=== PATIENT | male | born 1955 | race Caucasian/White ===

== ENCOUNTER 2023-09-29 06:02 | Emergency (ER) | payer MEDICARE, OTHER, SELFPAY ==
[2023-09-29] VITALS (9 sets, daily range): BP systolic 158–189; BP diastolic 76–91; PULSE 84–112; RESP 16–25; TEMP 36.4–37; O2SAT 95–100; BMI 21.2
--- NOTE | ~2023-09-29 | CT_ITS ---
EXAMINATION: CT CHEST WITHOUT CONTRAST CLINICAL INFORMATION: Near syncope. COMPARISON: None available. TECHNIQUE: Multidetector volumetric CT imaging of the chest was done. Axial MIP volume rendering provided. Sagittal and coronal reformatted images were obtained. This CT examination was performed using dose optimization techniques as appropriate, variously including the following: *Automated exposure control *Adjustment of mA and/or kV according to patient size (this includes techniques or standardized protocols for targeted exams where dose is matched to indication/reason for exam; i.e. extremities or head) *Use of iterative reconstruction technique DLP: 214 mGy-cm FINDINGS: LUNGS: Minimal biapical and bibasilar fibrotic streaks and/or atelectasis. The lungs otherwise appear clear. No evidence of acute inflammation or nodules. MEDIASTINUM: The mediastinum is normal. CORONARY ARTERY CALCIFICATION: Minimal. PLEURA: There is no pleural effusion. No pleural mass or thickening. AXILLA: No lymphadenopathy by size criteria. UPPER ABDOMEN: Subcentimeter, round, homogeneous, hypodense hepatic lesions, too small to characterize. In the absence of known or suspected malignancy elsewhere, the findings probably represent benign entities, such as simple cysts and/or hemangiomata. 1.2 cm benign left simple renal cyst for which no further dedicated follow up imaging is indicated. OSSEOUS STRUCTURES: Decreased bone mineral density. No acute finding. Degenerative changes of the shoulders. Bony bridging between the anterolateral aspects of the left sixth and seventh ribs. CT/CT chest wo IV con IMPRESSION: No acute finding.
--- NOTE | ~2023-09-29 | XR_ITS ---
EXAMINATION: XR CHEST CLINICAL INFORMATION: Feeling faint, near syncope. Patient states syncope and palpitations. COMPARISON: None available. TECHNIQUE: Frontal view of the chest was obtained. FINDINGS: The heart size is normal. Lungs are well inflated. Mild blunting of the left costophrenic angle may represent pleural effusion versus pleural thickening. Degenerative changes in the bilateral shoulders and thoracic spine. Mildly prominent interstitial opacities, greater in the left upper lung, of uncertain chronicity. XR/XR chest 1V IMPRESSION: Mild blunting of the left costophrenic angle, may represent pleural effusion versus pleural thickening. Mildly prominent interstitial opacities, greater in the left upper lung, of uncertain chronicity. This study was presented today September 29, 2023 for interpretation. Stat results provided at this time as requested by referring provider.
--- NOTE | ~2023-09-29 | CT_ITS ---
EXAMINATION: CT HEAD WITHOUT CONTRAST CLINICAL INFORMATION: Pain, question bleed COMPARISON: None available. TECHNIQUE: Contiguous axial imaging was performed from the skull base to vertex without intravenous administration of contrast. This CT examination was performed using dose optimization techniques as appropriate, variously including the following: *Automated exposure control *Adjustment of mA and/or kV according to patient size (this includes techniques or standardized protocols for targeted exams where dose is matched to indication/reason for exam; i.e. extremities or head) *Use of iterative reconstruction technique DLP: 825 mGy-cm FINDINGS: There is no midline shift. There is no mass effect. There is no hemorrhage. The basal cisterns appear patent. The posterior fossa is grossly within normal limits. No extra-axial collection. There are some scattered areas of decreased attenuation which may well be consistent with white matter skinny changes. CT/CT head/brain wo IV con IMPRESSION: Negative acute noncontrast CT the brain. Some scattered areas of probable white matter ischemic changes. If further evaluation is warranted consider MR.
[2023-09-29 06:16] LABS: Glucose, Whole Blood 95 mg/dL (60-115)
[2023-09-29 06:27] LABS: Baso%MD 0.5 %; Eos%MD 2.1 %; Hematocrit 42.9 % (42.0-52.0); Hemoglobin 15.1 g/dl (14.0-18.0); IG%MD 0.1 %; Lymph%MD 44.4 %; Mean Corpuscular HGB Conc 35.2 g/dl (31.0-36.0); Mean Corpuscular Hemoglobin 32.8 pg (27.0-33.0); Mean Corpuscular Volume 93.3 fL (80.0-98.0); Mono%MD 8.3 %; Neut%MD 44.6 %; Platelet Count 227 X10*3/uL (160-400)
[2023-09-29 06:42] LABS: Alanine Aminotransferase 30 U/L (0-40); Albumin Level 4.6 g/dL (3.5-5.0); Alkaline Phosphatase 92 U/L (39-117); Anion Gap 15 (12-20); Aspartate Amino Transferase 28 U/L (5-37); Bilirubin Total 0.7 mg/dL (0.0-1.0); Blood Urea Nitrogen 27 mg/dL (9-16); Calcium 9.8 mg/dL (8.4-10.2); Carbon Dioxide 24 mmol/L (22-29); Chloride 105 mmol/L (96-108); Creatinine Clr Calc Pharmacy 42.1; Estimated Glomerular Filt Rate 47; Glucose Random 109 mg/dL (60-115); Potassium 3.5 mmol/L (3.3-5.1); Sodium 140 mmol/L (135-145); Total Protein 8.4 g/dL (6.5-8.0)
[2023-09-29 06:44] LABS: INTERNATIONAL NORM RATIO 0.9 (0.9-1.1); Prothrombin Time 10.9 SEC (11.1-13.3)
[2023-09-29 06:48] LABS: Troponin-I High Sensitivity 6.3 ng/L (<3.5-35.0)
--- NOTE | 2023-09-29 06:53 | ED_ITS ---
HPI - General Adult General Chief complaint: General Medical Stated complaint: feels faint, headache, left side numbness Time Seen by Provider: 09/29/23 06:44 Source: patient Mode of arrival: ambulatory Limitations: no limitations History of Present Illness HPI narrative: This is a 68-year-old male who denies past medical history presenting to the emergency department status post having an episode of feeling faint (described as lightheaded), shaky, weak and had palpitations with an associated frontal headache, he reports this started at 05:30 this morning he reports he was up all night and this started suddenly. This has never happened to him before. Patient reports right now he is feeling normal. He denies chest pain, shortness of breath, visual changes, headache, vision changes, dizziness, weakness, recent URI, sick contacts, nausea, vomiting, diarrhea, abdominal pain. NIH stroke scale 0 Related Data Allergies Allergy/AdvReac Type Severity Reaction Status Date / Time No Known Allergies Allergy Verified 09/29/23 06:12 Review of Systems 2 Review of Systems: Yes all other systems are reviewed and are negative PMFSH Past Medical History Attestation statement: The following information was validated with the patient. Source: old records reviewed and nursing notes reviewed Social History Social History Smoked in Last 30 Days: No Use of substances other than those prescribed or required for medical reasons: No Advance Directives: No Advance Directives Information Provided: No Physical Exam ED Vital Signs: Vital Signs - 24 hr 09/29/23 06:09 09/29/23 06:19 09/29/23 07:59 Temperature 98.0 F 98.0 F Pulse Rate 109 H 111 H 99 Respiratory Rate 18 20 Blood Pressure 189/88 H 189/88 H 168/81 H Pulse Oximetry 99 100 Oxygen Delivery Method Room Air Room Air 09/29/23 08:01 09/29/23 08:03 09/29/23 11:02 Temperature 97.6 F Pulse Rate 95 103 H 100 Respiratory Rate 16 Blood Pressure 166/76 H 167/87 H 158/81 H Pulse Oximetry 99 Oxygen Delivery Method Room Air 09/29/23 13:31 09/29/23 13:56 Temperature 98.1 F Pulse Rate 106 H 112 H Respiratory Rate 25 H 16 Blood Pressure 170/91 H 162/87 H Pulse Oximetry 100 95 Oxygen Delivery Method Room Air Room Air BMI result Body Mass Index 21.2 vss Slight hypertension Appearance: Alert.? Oriented X3.? No acute distress.? Head: Normocephalic, atraumatic, no step-offs or deformities Eyes: Pupils equal, round and reactive to light.? Neck: Normal inspection.? Neck supple.? CVS: Normal heart rate and rhythm.? Pulses normal.? Respiratory: No respiratory distress.? Breath sounds normal.? Abdomen: Soft and nontender.? Skin: Skin warm and dry.? Normal skin color.? Normal skin turgor.? Extremities: No lower extremity edema.? No calf ttp. 5/5 strength to bilateral upper and lower extremities Neuro: Oriented X 3.? No motor deficit.? No sensory deficit. CN 2-12 intact . Ambulating with steady gait normal coordination. Normal [id number], [id number]-[id number]. Negative Romberg and pronator drift. NIH stroke scale 0 Course Reevaluation(s) Reevaluation #1: CBC unremarkable. Chemistry with elevated BUN and creatinine likely secondary to poor p.o. intake/dehydration. Trop 6.3, ekg pending. Dimer 260, age adjusted dimer negative VTE unlikley. Orthostatic vitals negative. Head CT negative acute noncontrast CT of the brain. Scattered areas of probable white matter ischemic changes. MRI to be considered however NIH stroke scale 0 patient's symptoms have completely resolved no indication for MRI at this time. Repeat troponin pending. EKG pending. UA pending. Time: 08:16 Reevaluation #2: Repeat EKG some changes in lead 3, UA unremarkable. Plan is for hospital admission after discussing this case with cardiology that recommends admission as well as echocardiogram. Patient currently getting an echo done. Hospitalist went in to speak to patient about admission and he does not want be admitted. He states he feels fine and wants to go home. Hospitalist will not admit him at this time as he does not want to stay in the hospital. Patient to be leaving against medical advice Time: 14:34 Reevaluation #3: Educated patient on diagnosis and treatment plan, answered all question, patient verbalizes understanding. At this time patient will be discharged home, advised to return with new or worsening symptoms. Educated on worrisome signs and symptoms and when to return. Patient to be discharged AMA Time: 14:34 Medical Decision Making Medical Decision Making [facility] Narrative: 0650 68-year-old male presents with an episode of feeling shaky, faint, weak with headache and palpitations that started at 05:30 this morning and has since resolved. He did take aspirin for the symptoms. Physical exam benign History and physical exam concerning for possible metabolic derangements versus orthostatic hypotension versus TIA. Unlikely stroke, posterior stroke, intracranial hemorrhage, aneurysm rupture. Will rule out anemia. Other differentials include anxiety. Unlikely ACS, PE. Plan labs, imaging, urine. Differential Diagnosis Differential Diagnoses: The differential diagnosis associated with the presentation includes History and physical exam concerning for possible metabolic derangements versus orthostatic hypotension versus TIA. Unlikely stroke, posterior stroke, intracranial hemorrhage, aneurysm rupture. Will rule out anemia. Other differentials include anxiety. Unlikely ACS, PE. Admission/Observation Consideration of admission/observation: Escalation of care including admission/observation considered Unlikely Lab Data [facility] Lab Attestation statement: I reviewed the patient's lab results. 09/29/23 06:22 09/29/23 06:22 Labs: Lab Results 09/29/23 09/29/23 09/29/23 Range/Units 06:12 06:22 07:58 WBC 8.0 (4.8-10.8) X10*3/uL RBC 4.60 (4.60-5.80) X10*6/uL Hgb 15.1 (14.0-18.0) g/dl Hct 42.9 (42.0-52.0) % MCV 93.3 (80.0-98.0) fL MCH 32.8 (27.0-33.0) pg MCHC 35.2 (31.0-36.0) g/dl RDW 12.0 (11.0-16.0) % Plt Count 227 (160-400) X10*3/uL MPV 9.0 L (9.4-12.4) fL Absolute Nucleated RBC 0.000 (0.0-0.012) X10*3/uL Nucleated RBC % (auto) 0.0 (0.0-0.2) /100WBC Neutrophils % (Manual) 45 (45-73) % Band Neutrophils % 1 L (3-5) % Lymphocytes % (Manual) 36 (20-40) % Atypical Lymphs % (Man) 2 (0-6) % Monocytes % (Manual) 11 (2-11) % Eosinophils % (Manual) 4 (0-4) % Basophils % (Manual) 1 (0-2) % Abs Neuts (Manual) 3.7 (2.0-8.3) X10*3/uL Lymphocytes # (Manual) 2.9 (1.2-4.9) X10*3/uL Atyp Lymphs # (Manual) 0.2 x10*3/uL Monocytes # (Manual) 0.9 (0.1-1.2) X10*3/uL Eosinophils # (Manual) 0.3 (0.0-0.4) X10*3/uL Basophils # (Manual) 0.1 (0.0-0.2) X10*3/uL Platelet Estimate NORMAL (NORMAL) Plt Morphology Comment NORMAL RBC Morphology NORMAL PT 10.9 L (11.1-13.3) SEC INR 0.9 (0.9-1.1) D-Dimer High Sensitivty 260 NG/ML Sodium 140 (135-145) mmol/L Potassium 3.5 (3.3-5.1) mmol/L Chloride 105 (96-108) mmol/L Carbon Dioxide 24 (22-29) mmol/L Anion Gap 15 (12-20) BUN 27 H (9-16) mg/dL Creatinine 1.48 H (0.5-1.4) mg/dL Estim Creat Clear Calc 42.1 Estimated GFR 47 POC Glucose 95 (60-115) mg/dL Random Glucose 109 (60-115) mg/dL Calcium 9.8 (8.4-10.2) mg/dL Total Bilirubin 0.7 (0.0-1.0) mg/dL AST 28 (5-37) U/L ALT 30 (0-40) U/L Alkaline Phosphatase 92 (39-117) U/L Troponin I High Sens 6.3 (<3.5-35.0) ng/L Total Protein 8.4 H (6.5-8.0) g/dL Albumin 4.6 (3.5-5.0) g/dL Urine Color Yellow Urine Appearance Clear Urine pH 5.5 (5.0-9.0) Ur Specific [place] 1.025 (1.005-1.025) Urine Protein 30 (1+) H (Neg-Trace) mg/dL Urine Glucose (UA) Negative (Negative) mg/dL Urine Ketones Trace (Negative) mg/dL Urine Blood Moderate (2+) H (Negative) Urine Nitrite Negative (Negative) Ur Leukocyte Esterase Negative (Negative) Urine RBC 6-10 H (0-2) /HPF Urine WBC 0-5 (0-5) /HPF Ur Squamous Epith Cells 0-2 (0-2) /HPF Urine Bacteria None Seen (None Seen) Hyaline Casts 0-2 (0-2) /LPF 09/29/23 09/29/23 09/29/23 Range/Units 08:20 10:08 12:18 WBC (4.8-10.8) X10*3/uL RBC (4.60-5.80) X10*6/uL Hgb (14.0-18.0) g/dl Hct (42.0-52.0) % MCV (80.0-98.0) fL MCH (27.0-33.0) pg MCHC (31.0-36.0) g/dl RDW (11.0-16.0) % Plt Count (160-400) X10*3/uL MPV (9.4-12.4) fL Absolute Nucleated RBC (0.0-0.012) X10*3/uL Nucleated RBC % (auto) (0.0-0.2) /100WBC Neutrophils % (Manual) (45-73) % Band Neutrophils % (3-5) % Lymphocytes % (Manual) (20-40) % Atypical Lymphs % (Man) (0-6) % Monocytes % (Manual) (2-11) % Eosinophils % (Manual) (0-4) % Basophils % (Manual) (0-2) % Abs Neuts (Manual) (2.0-8.3) X10*3/uL Lymphocytes # (Manual) (1.2-4.9) X10*3/uL Atyp Lymphs # (Manual) x10*3/uL Monocytes # (Manual) (0.1-1.2) X10*3/uL Eosinophils # (Manual) (0.0-0.4) X10*3/uL Basophils # (Manual) (0.0-0.2) X10*3/uL Platelet Estimate (NORMAL) Plt Morphology Comment RBC Morphology PT (11.1-13.3) SEC INR (0.9-1.1) D-Dimer High Sensitivty NG/ML Sodium (135-145) mmol/L Potassium (3.3-5.1) mmol/L Chloride (96-108) mmol/L Carbon Dioxide (22-29) mmol/L Anion Gap (12-20) BUN (9-16) mg/dL Creatinine (0.5-1.4) mg/dL Estim Creat Clear Calc Estimated GFR POC Glucose (60-115) mg/dL Random Glucose (60-115) mg/dL Calcium (8.4-10.2) mg/dL Total Bilirubin (0.0-1.0) mg/dL AST (5-37) U/L ALT (0-40) U/L Alkaline Phosphatase (39-117) U/L Troponin I High Sens 10.2 D 19.6 D 31.3 D (<3.5-35.0) ng/L Total Protein (6.5-8.0) g/dL Albumin (3.5-5.0) g/dL Urine Color Urine Appearance Urine pH (5.0-9.0) Ur Specific [place] (1.005-1.025) Urine Protein (Neg-Trace) mg/dL Urine Glucose (UA) (Negative) mg/dL Urine Ketones (Negative) mg/dL Urine Blood (Negative) Urine Nitrite (Negative) Ur Leukocyte Esterase (Negative) Urine RBC (0-2) /HPF Urine WBC (0-5) /HPF Ur Squamous Epith Cells (0-2) /HPF Urine Bacteria (None Seen) Hyaline Casts (0-2) /LPF Independent Interpretation I performed an independent interpretation of an: Plain X-Ray (XR/XR chest 1V IMPRESSION: Mild blunting of the left costophrenic angle, may represent pleural effusion versus pleural thickening. Mildly prominent interstitial opacities, greater in the left upper lung, of uncertain chronicity. This study was presented today September 29, 2023 for interpretation. ) and CT Scan (CT/CT head/brain wo IV con IMPRESSION: Negative acute noncontrast CT the brain. Some scattered areas of probable white matter ischemic changes. If further evaluation is warranted consider MR.) Radiology Impression Discussion of test interpretation with radiology: I have reviewed the radiologist's reading. Chronic Conditions Denies Critical Care Time Critical Care Time Critical Care Time: No Discharge Plan Discharge Clinical Impression: Episodic lightheadedness, CYNTHIA (acute kidney injury), Hepatic lesion, Elevated troponin, Left against medical advice Patient Disposition: Left Against Medical Advice Instructions: Acute Kidney Injury (DC), Lightheadedness (ED), Against Medical Advice (ED) Additional Instructions: Take your medications as prescribed. If you were prescribed antibiotics today, it is important that you take your medication to their entirety, do not skip any doses, do not finish them early. Follow-up with your primary care provider this week. Return to the emergency department with new or worsening symptoms. Such as fevers, chills, chest pain, shortness of breath, nausea, vomiting, dizziness, headache, vision changes, lethargy In case of emergency call 911 Patient decided to leave against medical advice. I took the time to go over risks of leaving against medical advice including . Patient verbalizes understanding of this. Advised them to come back if they change their mind. CT/CT head/brain wo IV con IMPRESSION: Negative acute noncontrast CT the brain. Some scattered areas of probable white matter ischemic changes. If further evaluation is warranted consider MR. CT Chest FINDINGS: LUNGS: Minimal biapical and bibasilar fibrotic streaks and/or atelectasis. The lungs otherwise appear clear. No evidence of acute inflammation or nodules. MEDIASTINUM: The mediastinum is normal. CORONARY ARTERY CALCIFICATION: Minimal. PLEURA: There is no pleural effusion. No pleural mass or thickening. AXILLA: No lymphadenopathy by size criteria. UPPER ABDOMEN: Subcentimeter, round, homogeneous, hypodense hepatic lesions, too small to characterize. In the absence of known or suspected malignancy elsewhere, the findings probably represent benign entities, such as simple cysts and/or hemangiomata. 1.2 cm benign left simple renal cyst for which no further dedicated follow up imaging is indicated. OSSEOUS STRUCTURES: Decreased bone mineral density. No acute finding. Degenerative changes of the shoulders. Bony bridging between the anterolateral aspects of the left sixth and seventh ribs. CT/CT chest wo IV con IMPRESSION: No acute finding. Referrals: Physician,Unknown J [Primary Care Provider] - 2 days Stand Alone Forms: Against Medical Advice Print Language: Lithuanian
--- NOTE | 2023-09-29 07:00 | CA_ITS ---
Transthoracic Echocardiogram Patient (Last, First, Middle): Guillermo Laws, Gender: Male Date of : 1955 Age: 68 Procedure Date: 09/29/2023 Procedure Type: Transthoracic Echocardiogram Location: ER Height: 165.1 cm Weight: 63.05 kg BSA: 1.69 m2 Heart Rate: bpm BP: 161 / 87 mmHg Hospital Admissions Clerk: Referring MD: Ian PAVON Symptoms: elevated trop Study Quality: Fair ECG Rhythm: Sinus tachycardia Conclusions: - The left ventricular systolic function is normal. The visually estimated ejection fraction is between 60-65%. - No obvious valvular pathology seen on this study. Findings Left Ventricle Normal left ventricular cavity size. There is mildly increased left ventricular wall thickness. The left ventricular systolic function is normal. The visually estimated ejection fraction is between 60-65%. There is no evidence of regional wall motion abnormalities. Diastolic function is indeterminate on the basis of available data. Right Ventricle Normal right ventricular cavity size and systolic function. Atria Both atria are normal in size. Aortic Valve There is a normal trileaflet aortic valve. There is no aortic valve stenosis. There is no aortic valve regurgitation. Mitral Valve The mitral valve appears normal. There is no mitral valve regurgitation. There is no mitral valve stenosis. Pulmonic Valve Slightly increased gradients across the pulmonic valve. Cannot exclude mild pulmonic stenosis. Tricuspid Valve There is trace tricuspid valve regurgitation. Borderline RVSP. Great Vessels The asc aorta is normal in size. Venous The inferior vena cava is normal in size and collapses greater than 50% with inspiration. Pericardium/Pleural There is no evidence of pericardial effusion. Prior Study Comparison No prior study available for comparison. Recommendations, Care & Conclusions No obvious valvular pathology seen on this study. Measurements 2D Linear Measurements IVSd: 1.08 0.6-0.9/0.6-1.0 cm LVIDd: 4.17 3.9-5.3/4.2-5.9 cm LVIDd Index: 2.47 2.4-3.2/2.2-3.1 cm/m2 LVIDs: 2.74 2.0-3.6 cm LVPWd: 1.03 0.7-1.1 cm Ao Root: 3.30 2.1-3.5 cm LA Diam: 3.30 2.7-3.8/3.0-4.0 cm LAIDs Index: 1.95 1.5-2.3 cm/m2 LV Mass: 182.17 67-162/88-224 g LV Mass Index: 107.79 43-95/49-115 g/m2 LVOT Diam: 2.00 3.0+(-)1.3 cm 2D Systolic Function EF 4C: 55.20 >55% EF 2C: 57.00 >55% EF BiP: 55.60 >55% Mitral Valve MV Pk E: 0.52 MV PK A: 1.19 MV Decel Time: 122.00 E/A: 0.40 E'Lateral: 8.38 E'Medial: 3.81 E/E' Med: 13.70 E/E' Lat: 6.20 PHT: 36.00 MVA PHT: 6.11 Decel Baxter: 4.29 Aortic Valve AoV Pk William: 1.74 AoV Mn William: 1.11 AoV VTI: 0.31 AoV Pk Grad: 12.00 Aov Mn Grad: 6.00 ALEXIS Cont.VTI: 2.63 LVOT LVOT Pk William: 1.40 LVOT Mn William: 1.06 LVOT VTI: 0.26 LVOT Pk Grad: 8.00 LVOT Mn Grad: 5.00 LVOT Diam: 2.00 LVOT Area: 3.14 Diastolic Function MV Pk E: 0.52 MV Pk A: 1.19 E/A: 0.40 E'Medial: 3.81 E/E' Med: 13.70 E' Laterial: 8.38 E/E' Lat: 6.20 Right Ventricle TAPSE (mm): 33.00 TVS' William: 21.00 Tricuspid Valve TR Pk William: 2.78 TR Pk Grad: 31.00 RA Press: 3.00 RVSP: 34.00 Great Vessels Aorta Ao Root-2D: 3.30 2.0-3.7 cm Ao Asc: 3.10 2.1-3.4 cm Pulmonary Valve PV Pk William: 1.71 Peak PV Grad: 12.00 Updated in Other Vendor System with Status of Final Gerard Begum MD electronically signed on 09/29/2023 4:23:36 PM with status of Final
--- OUTSIDE RECORDS SUMMARY | 2023-09-29 07:00 | XMS_ITS | Continuity of Care Document ---
Author Organization [facility] y Address [address] [place] [address]- Care Team Providers Care Hotel Reservation Agent Name Role Phone Yoandy RAMOS, Sal W Primary Care Physician [phone] Encounter [facility] [place] Date(s): 06/19/19 - 06/29/19 [facility] [address] [place] [address]- Attending Physician: Itzel Hernandez Admitting Physician: AdmItzel lópez Referring Physician: AdmtrItzel Allergies, Adverse Reactions, Alerts Substance Reaction Severity Status doxycycline Active Medications aspirin 81 mg oral tablet 1 tablet = 81 mg, By Mouth, Daily, # 30 tablet, 0 Refills, Maintenance, 04/29/16 17:28:48, Tablet Start Date: 04/29/16 Status: Ordered Multivitamin Daily, 0 Refills, Maintenance, 04/29/16 17:28:32 Start Date: 04/29/16 Status: Ordered ZyPREXA 10 mg oral tablet 10 mg, 1, tablet, By Mouth, Daily at bedtime, Brand Name Only. No subsitution. pls cancel any otherzyprexa on file, # 30 tablet, Refills 11, Tot. Refills 11, Maintenance, 10/27/18 15:40:06 EDT, Route to Pharmacy Electronically, [id number]... Start Date: 10/27/18 Status: Ordered Problem List Condition Effective Dates Status Health Status Inform ant Anxiety disorder(Confirmed) Active Paranoid disorder(Confirmed) Active Social History Social History Type Response Smoking Status Former smoker; Type: Cigarettes; Other: smoked in 20s; entered on: 04/29/16 Sex
--- OUTSIDE RECORDS SUMMARY | 2023-09-29 07:00 | XMS_ITS | Continuity of Care Document ---
Author Organization [facility] ter Address [address] [place] [address]- Care Team Providers Care Workforce Management Manager Name Role Phone Sal Pitt MD Primary Care Physician Encounter [facility] [place] Date(s): 10/06/21 - 11/13/[address] [address] Attending Physician: Sal Pitt MD Admitting Physician: Sal Pitt MD Referring Physician: Sal Pitt MD Allergies, Adverse Reactions, Alerts Substance Reaction Severity Status doxycycline Active Medications aspirin 81 mg oral tablet 1 tablet = 81 mg, By Mouth, Daily, # 30 tablet, 0 Refills, Maintenance, 04/29/16 17:28:48, Tablet Start Date: 04/29/16 Status: Ordered olanzapine 10 mg oral tablet 10 mg, 1, tablet, By Mouth, Daily, Prescribing generic olanzapine to hold Guillermo over till I can get PA covered., # 30 tablet, Refills 0, Tot. Refills 0, Maintenance, 08/06/21 15:08:00 EST, Route to Pharmacy Electronically, [facility] #[id number],... Start Date: 08/06/21 Status: Ordered ZyPREXA 10 mg oral tablet See Instructions, TAKE 1 TABLET BY MOUTH DAILY AT BEDTIME BRAND NAME ONLY. NO SUBSITUTION. PLEASE CANCEL ANY OTHER ZYPREXA ON FILE, # 30 tablet, Refills 5, Tot. Refills 5, Maintenance, 05/05/21 15:26:00 EST, Instructions Replace Required Details, Rout... Start Date: 05/05/21 Status: Ordered Problem List Condition Effective Dates Status Health Status Inform ant Anxiety disorder(Confirmed) Active Benign essential HTN(Confirmed) Active Paranoid disorder(Confirmed) Active Social History Social History Type Response Smoking Status Former smoker; Type: Cigarettes; Other: smoked in 20s; entered on: 04/29/16 Sex
--- OUTSIDE RECORDS SUMMARY | 2023-09-29 07:00 | XMS_ITS | Continuity of Care Document ---
Author Organization [facility] Address [address] [place] [address]- Care Team Providers Care Attorney Law Clerk Name Role Phone Yoandy RAMOS, Sal W Primary Care Physician Encounter [facility] Date(s): 02/27/20 - 02/27/[address] [address]- [facility] Discharge Disposition: A-D/C Home Attending Physician: Allison Kaufman MD Admitting Physician: Allison Kaufman MD Referring Physician: Not on Staff, Referring MD Allergies, Adverse Reactions, Alerts Substance Reaction Severity Status doxycycline Active Medications aspirin 81 mg oral tablet 1 tablet = 81 mg, By Mouth, Daily, # 30 tablet, 0 Refills, Maintenance, 04/29/16 17:28:48, Tablet Start Date: 04/29/16 Status: Ordered [place] 325 mg-5 mg oral tablet 1 tablet, By Mouth, Every 6 hours, PRN as needed for pain, for 3 days, # 18 tablet, 0 Refills, Acute 03/01/20 22:56:00 EDT, 02/27/20 22:56:00 EDT, Tablet, [facility] #[id number], Partial fill upon patient request, 1 tablet By Mouth Every 6 hours,... Start Date: 02/27/20 Stop Date: 03/01/20 Status: Ordered ZyPREXA 10 mg oral tablet 10 mg, 1, tablet, By Mouth, Daily at bedtime, Brand Name Only. No subsitution. pls cancel any otherzyprexa on file, # 30 tablet, Refills 11, Tot. Refills 11, Maintenance, 10/20/19 15:47:00 EDT, Route to Pharmacy Electronically, [facility] #... Start Date: 10/20/19 Status: Ordered Problem List Condition Effective Dates Status Health Status Inform ant Anxiety disorder(Confirmed) Active Paranoid disorder(Confirmed) Active Results Radiology Reports * Exam Date Time Procedure Performing Provider Status 02/27/20 9:15 PM Shoulder Min 2 Views Left Alyssa Álvarez; Auth (Verified) Notes: (Shoulder Min 2 Views Left) Reason For Exam: with Pain;Trauma RESULT: Shoulder Min 2 Views Left Shoulder Min 2 Views Left, Hx of Present Illness: fell landed on left arm c o left shoulder pain dec rom +cms; Reason: Trauma;with Pain; Clinical Question(s): Fracture COMPARISON: None. FINDINGS: Acute fracture of the left humeral surgical neck with impaction. There is inferior subluxation of the humeral head relative to the glenoid without felicia dislocation. The humeral shaft is displaced anteriorly. Moderate joint space narrowing and marginal spurring. Mild degenerative changes of the AC joint. The portion of the clavicle included on the exam is normal. IMPRESSION: Acute left humeral neck fracture with impaction. A Document Only message has been documented in the [employer] system Luke Kaufman MD on 02/27/2020 9:20 PM, Message ID [id number]. WSN: [id number] Ordering Physician: Allison Kaufman Dictated By: Bharath Burns DO Dictated Date/Time: 02/27/20 9:20 pm Reviewed By: Bharath Burns DO Signed By: Bharath Burns DO Signed Date/Time: 02/27/20 9:20 pm Transcribed By: MORRO Transcribed Date/Time: 02/27/20 9:18 pm Vital Signs Most recent to oldest [Reference Range]: 1 2 3 Height 173 cm (02/27/20 11:28 PM) 173 cm (02/27/20 9:09 PM) 173 cm (02/27/20 7:29 PM) Weight 65.9 kg (02/27/20 11:28 PM) 65.9 kg (02/27/20 9:09 PM) 65.9 kg (02/27/20 7:29 PM) Oxygen Saturation [94-100 %] 100 % (02/27/20 9:09 PM) 99 % (02/27/20 7:27 PM) Pulse Rate [55-90 bpm] 122 bpm *H* (02/27/20 9:09 PM) 126 bpm *H* (02/27/20 7:27 PM) Body Mass Index [18.5-24.99] 22.02 (02/27/20 9:09 PM) Blood Pressure [90-138/55-84 mm Hg] 167/106mm Hg *H* (02/27/20 9:09 PM) 195/98mm Hg *H* (02/27/20 7:27 PM) Respiratory Rate [16-30 br/min] 16 br/min (02/27/20 11:17 PM) 18 br/min (02/27/20 9:34 PM) 20 br/min (02/27/20 9:09 PM) Temperature [96.8-100.4 DegF] 99.8 DegF (02/27/20 7:27 PM) Mode of Delivery (Oxygen) Room air (02/27/20 9:09 PM) Room air (02/27/20 7:27 PM) Blood pressure sites Arm, right (02/27/20 9:09 PM) Arm, right (02/27/20 7:27 PM) Temperature Route Oral (02/27/20 7:27 PM) Dry Weight 65.9 kg (02/27/20 11:28 PM) 65.9 kg (02/27/20 9:09 PM) 65.9 kg (02/27/20 7:29 PM) Weight Obtained Via Standing scale (02/27/20 7:29 PM) Dry Weight Obtained Via Standing scale (02/27/20 7:29 PM) Social History Social History Type Response Smoking Status Former smoker; Type: Cigarettes; Other: smoked in 20s; entered on: 04/29/16 Sex
--- OUTSIDE RECORDS SUMMARY | 2023-09-29 07:00 | XMS_ITS | Continuity of Care Document ---
Author Organization [facility] ter Address [address] [place] [address]- Care Team Providers Care Post Secondary Professional Name Role Phone Sal Pitt MD Primary Care Physician Encounter [facility] [place] Date(s): 10/06/21 - 11/10/[address] [address] Attending Physician: Sal Pitt MD Admitting Physician: [...] 08/06/21 15:08:00 EST, Route to Pharmacy Electronically, [facility] #[id number],... Start Date: 08/06/21 Status: Ordered ZyPREXA 10 [...]
--- OUTSIDE RECORDS SUMMARY | 2023-09-29 07:00 | XMS_ITS | Continuity of Care Document ---
Author Organization [facility] ter Address [address] [place] [address]- Care Team Providers Care Patient Admitting Clerk Name Role Phone Sal Pitt MD Primary Care Physician Encounter [facility] [place](s): 10/03/21 - 11/05/[address] [address] Attending Physician: Sal Pitt MD Admitting [...] 08/06/21 15:08:00 EST, Route to Pharmacy Electronically, [facility] #[id number],... Start Date: 08/06/21 Status: Ordered ZyPREXA 10 [...]
[2023-09-29 08:12] LABS: D Dimer High Sensitivity 260 NG/ML
--- NOTE | 2023-09-29 08:15 | ECG_ITS ---
Test Reason : cp Blood Pressure : / mmHG Vent. Rate : 097 BPM Atrial Rate : 097 BPM P-R Int : 130 ms QRS Dur : 088 ms QT Int : 350 ms P-R-T Axes : 037 -07 056 degrees QTc Int : 444 ms Normal sinus rhythm Septal infarct , age undetermined Abnormal ECG No previous ECGs available Referred By: Ian Herring Electronically Signed By:SAMIA BLACKMAN
[2023-09-29 08:19] LABS: Appearance Urine Clear; Color Urine Yellow; Glucose Urine UA Negative (Negative); Leukocyte Esterase Urine Negative (Negative); Nitrite Urine Negative (Negative); PH 5.5 (5.0-9.0); Specific Gravity - Urine 1.025 (1.005-1.025); UMIC TRIGGER UACC YES; Urine Blood Moderate (2+) (Negative); Urine Ketones Trace mg/dL (Negative); Urine Protein 30 (1+) mg/dL (Neg-Trace)
[2023-09-29 08:21] LABS: Bacteria Urine None Seen (None Seen); Hyaline Casts Urine 0-2 /LPF (0-2); Squamous Epithelial Cell Urine 0-2 /HPF (0-2); WBC Urine 0-5 /HPF (0-5)
--- NOTE | 2023-09-29 08:39 | PC.NURSE ---
PT IS A/O X 4 NO SOB/ALIZA NOTED SPEAKS IN FULL SENTENCES. NEUROS - WNL . AMB (i) GAIT STEADY. PT DENIES ANY PAIN/DISC. PT AWARE OF PLAN OF CARE. WILL CONTINUE TO MONITOR.
[2023-09-29 08:40] LABS: Atypical Lymph Absolute Manual 0.2 x10*3/uL; Atypical Lymphs Percent Manual 2 % (0-6); Band Neutrophils Percent 1 % (3-5); Basophils Abs Manual 0.1 X10*3/uL (0.0-0.2); Basophils Percent Manual 1 % (0-2); Eosinophils Absolute Manual 0.3 X10*3/uL (0.0-0.4); Eosinophils Percent Manual 4 % (0-4); Lymphocytes Absolute Manual 2.9 X10*3/uL (1.2-4.9); Lymphocytes Percent Manual 36 % (20-40); Monocytes Absolute Manual 0.9 X10*3/uL (0.1-1.2); Monocytes Percent Manual 11 % (2-11); Neutrophils Absolute Manual 3.7 X10*3/uL (2.0-8.3); Neutrophils Percent Manual 45 % (45-73)
[2023-09-29 08:46] LABS: Troponin-I High Sensitivity 10.2 ng/L (<3.5-35.0)
[2023-09-29 08:46] LABS: Platelet Estimate NORMAL (NORMAL); RBC Morphology NORMAL
[2023-09-29 08:47] LABS: Platelet Morphology Comment NORMAL
[2023-09-29 10:32] LABS: Troponin-I High Sensitivity 19.6 ng/L (<3.5-35.0)
[2023-09-29 12:45] LABS: Troponin-I High Sensitivity 31.3 ng/L (<3.5-35.0)
--- NOTE | 2023-09-29 12:52 | ECG_ITS ---
Test Reason : REPEAT EKG Blood Pressure : / mmHG Vent. Rate : 099 BPM Atrial Rate : 099 BPM P-R Int : 160 ms QRS Dur : 088 ms QT Int : 344 ms P-R-T Axes : 057 -10 053 degrees QTc Int : 441 ms Normal sinus rhythm Cannot rule out Anteroseptal infarct (cited on or before 29-SEP-2023) Abnormal ECG When compared with ECG of 29-SEP-2023 08:51, Questionable change in initial forces of Septal leads Referred By: Ian Herring Electronically Signed By:SAMIA BLACKMAN
== END 2023-09-29 15:25 | disposition left against medical advice (07) ==
PROVIDERS: Physician Assistant; Emergency Provider Emergency Medicine
DX: R42 Dizziness and giddiness (principal); R79.89 Other specified abnormal findings of blood chemistry; R51.9 Headache, unspecified; R94.31 Abnormal electrocardiogram [ECG] [EKG]; R00.2 Palpitations; R06.02 Shortness of breath; M54.6 Pain in thoracic spine; Z79.899 Other long term (current) drug therapy
CPT/HCPCS: 36415; 70450; 71045; 71250; 80053; 81001; 82947; 84484; 85007; 85027; 85379; 85610; 93005; 93306; 99284; 99285

== ENCOUNTER → 2023-09-29 08:15 | Outpatient (BNV) | payer MEDICARE, SELFPAY | PROVIDERS: Emergency Provider Emergency Medicine; Visit Provider Internal Medicine | DX: R94.31 Abnormal electrocardiogram [ECG] [EKG] (principal) | CPT/HCPCS: 93010; 93306 ==